=== PATIENT | female | born 1930 | race Hispanic/Latino ===

== ENCOUNTER 2018-05-14 12:52 | Emergency (ER) | payer MEDICARE ==
[~2018-05-14 12:52] MED LIST: ALEN70TA10 PO; AMLO5TAB9 PO; ASPI-1181 PO; ATOR10 PO; CLON0.1T PO; FERS325 PO; LEVO25TA54 PO; LOSA1TAB42 PO; SITA100T12 PO
[2018-05-14 14:48] LABS: BASOPHILS % (AUTO) 0.3 % (0.0-5.0); HEMATOCRIT 45.4 % (36-48); LYMPHOCYTES % (AUTO) 8.9 % (21.0-51.0); MEAN CORPUSCULAR HEMOGLOBIN 29.6 pg (27.0-33.0); MEAN CORPUSCULAR VOLUME 89.5 fL (79-99); MONOCYTES % (AUTO) 3.9 % (3.0-13.0); NEUTROPHILS % (AUTO) 86.9 % (40.0-77.0); NUCLEATED RED BLOOD CELLS 0.1 % (0.0-0.19); PLATELET COUNT (AUTO) 248 K/uL (130-400); RED BLOOD CELL COUNT(AUTO) 5.07 MIL/uL (4.00-5.50); RED CELL DISTRIBUTION WIDTH 14.3 % (11.0-15.5); WHITE BLOOD COUNT (AUTO) 11.4 K/uL (4.8-10.8)
[2018-05-14] MEDS ORDERED: SODIUM CHLORIDE 0.9% 1000ML 1,000 ML IV ONE (15:27)
[2018-05-14] MEDS ORDERED: ONDANSETRON HCL 4 MG/2 ML VIAL ONE (15:27)
[2018-05-14] MEDS ORDERED: MORPHINE SULFATE 4 MG/1ML SYG ONE (15:28)
[2018-05-14 15:35] LABS: ALBUMIN 2.5 g/dL (3.5-5.0); BILIRUBIN,TOTAL 0.5 mg/dL (0.2-1.0); TOTAL PROTEIN, SERUM 7.4 g/dL (6.0-8.3)
[2018-05-14 15:58] LABS: POTASSIUM 2.7 mmol/L (3.5-5.1)
[2018-05-14] MEDS ORDERED: POTASSIUM CHLORIDE 10% ELIXIR 20 MEQ/15 ML UDCUP ONE (17:05)
[2018-05-14] MEDS ORDERED: CLONIDINE HCL 0.1 MG TABLET ONE (17:14)
[2018-05-14 17:31] LABS: APPEARANCE,URINE Clear (CLEAR); BILIRUBIN,URINE Negative (NEGATIVE); COLOR,URINE Yellow (YELLOW); GLUCOSE, URINE (UA) TRACE mg/dL (NEGATIVE); KETONES,URINE Negative (NEGATIVE); LEUKOCYTE ESTERASE ,URINE Trace (NEGATIVE); NITRATE,URINE Negative (NEGATIVE); OCCULT BLOOD,URINE Negative (NEGATIVE); PROTEIN,URINE POS 2+ (NEGATIVE); UROBILINOGEN,URINE 0.2 mg/dL (0.2-1.0)
[2018-05-14 18:05] LABS: BACTERIA,URINE None Seen /HPF (None Seen); RBC,URINE None Seen /HPF (0-1); SQUAMOUS EPITHELIAL CELL,UR Rare /HPF (0-2)
[2018-05-14] MEDS ORDERED: MAGNESIUM OXIDE 400 MG TABLET PO ONE (18:08)
== END 2018-05-14 18:53 | disposition home or self-care (01) ==
LOC: EDH 12:52
DX: G89.29 Other chronic pain (principal); R10.84 Generalized abdominal pain; E11.9 Type 2 diabetes mellitus without complications; E78.5 Hyperlipidemia, unspecified; I10 Essential (primary) hypertension; G43.909 Migraine, unspecified, not intractable, without status migrainosus; M81.0 Age-related osteoporosis without current pathological fracture; M06.9 Rheumatoid arthritis, unspecified; Z90.710 Acquired absence of both cervix and uterus; Z90.49 Acquired absence of other specified parts of digestive tract; Z88.1 Allergy status to other antibiotic agents; Z98.51 Tubal ligation status; Z91.041 Radiographic dye allergy status
CPT/HCPCS: 36415; 74176; 80053; 81001; 82550; 83690; 83735; 84484; 85025; 93005; 96374; 96375; 99284; J2270; J2405; J7030

== ENCOUNTER 2018-05-27 09:57 | Day surgery (SDC) | payer MEDICARE ==
[~2018-05-27] VITALS: Ht 154.9 cm; Wt 42.4 kg
[~2018-05-27 09:57] MED LIST changes: -ASPI-1181 PO; -FERS325 PO; -LOSA1TAB42 PO; +SODIUM CHLORIDE 0.9% 1000ML 1,000 ML IV ONE
[2018-05-27 11:06] VITALS: BP 127/59
[2018-05-27] MEDS ORDERED: ESOM40CA PO (11:27)
[2018-05-27] MEDS ORDERED: LOSA100T58 PO (11:27)
[2018-05-27] MEDS ORDERED: PROPOFOL 10 MG/ML 20ML VIAL IV ONE ×2 (12:15→12:16)
[2018-05-27] MEDS ORDERED: LIDOCAINE HCL-MPF 2% 5ML VIAL ONE (12:16)
[2018-05-27 12:45] VITALS: BP 123/78
[2018-05-27 12:50] VITALS: BP 135/59
[2018-05-27 12:55] VITALS: BP 151/91
--- NOTE | 2018-05-27 13:20 | NUR ---
PT TOLERATED PROCEDURE WELL, INFORMED Levy CHÁVEZ [employer] GUARD NURSE FOR GI DEPARTMENT REGARDING HOME MEDICATIONS ON D/C, STATED PT CAN RESUME HOME MEDICATIONS TO INSTRUCT PT NOT TO TAKE ASPIRIN TODAY OR TOMORROW. POST CARE INSTRUCTION GIVEN TO PT AND SON, BOTH STATED UNDERSTANDING. RECOMMENED PT START WIT SOFT DIET THEN ADVANCE TO SOLIDS LATER ON IN THE EVENING. PT DRIVEN HOME BY SON.
== END 2018-05-27 13:20 | disposition home or self-care (01) ==
LOC: ENDO 09:57 → DAH 09:57 → ENDO 13:20
PROVIDERS: ATTEND Internal Medicine
DX: K29.50 Unspecified chronic gastritis without bleeding (principal); K25.9 Gastric ulcer, unspecified as acute or chronic, without hemorrhage or perforation; K31.89 Other diseases of stomach and duodenum; I10 Essential (primary) hypertension; E78.5 Hyperlipidemia, unspecified; E11.9 Type 2 diabetes mellitus without complications; M81.0 Age-related osteoporosis without current pathological fracture; E03.9 Hypothyroidism, unspecified; Z79.899 Other long term (current) drug therapy; Z88.8 Allergy status to other drugs, medicaments and biological substances
CPT/HCPCS: 43239; 82948; 88305; 93005; A4606; J2704 ×2; J3490; J7030

== ENCOUNTER → 2018-07-12 | Outpatient (CLI) | payer MEDICARE ==
[~2018-07-12] MED LIST changes: +ESOM40CA PO; +LOSA100T58 PO; -SODIUM CHLORIDE 0.9% 1000ML 1,000 ML IV ONE
== END | disposition home or self-care (01) ==
LOC: RAH 14:33
PROVIDERS: ATTEND Family Medicine
DX: G31.9 Degenerative disease of nervous system, unspecified (principal)
CPT/HCPCS: 70551

== ENCOUNTER 2018-11-10 11:28 | Emergency (ER) | payer MEDICARE ==
[2018-11-10 11:54] LABS: BASOPHILS % (AUTO) 0.2 % (0.0-5.0); HEMATOCRIT 33.9 % (36-48); LYMPHOCYTES % (AUTO) 35.1 % (21.0-51.0); MEAN CORPUSCULAR HEMOGLOBIN 29.6 pg (27.0-33.0); MEAN CORPUSCULAR HGB CONC 33.7 g/dL (32.0-36.0); MEAN CORPUSCULAR VOLUME 87.8 fL (79-99); MONOCYTES % (AUTO) 8.4 % (3.0-13.0); NEUTROPHILS % (AUTO) 55.3 % (40.0-77.0); NUCLEATED RED BLOOD CELLS 0.1 % (0.0-0.19); PLATELET COUNT (AUTO) 168 K/uL (130-400); RED BLOOD CELL COUNT(AUTO) 3.86 MIL/uL (4.00-5.50); RED CELL DISTRIBUTION WIDTH 13.8 % (11.0-15.5); WHITE BLOOD COUNT (AUTO) 8.1 K/uL (4.8-10.8)
[2018-11-10 12:12] LABS: POTASSIUM 3.8 mmol/L (3.5-5.1)
[2018-11-10 12:17] LABS: ALBUMIN 2.9 g/dL (3.5-5.0); BILIRUBIN,TOTAL 0.5 mg/dL (0.2-1.0); TOTAL PROTEIN, SERUM 7.2 g/dL (6.0-8.3)
[2018-11-10] MEDS ORDERED: MECLIZINE HCL 25 MG TABLET ONE (12:59)
[2018-11-10] MEDS ORDERED: SODIUM CHLORIDE 0.9% 500ML 500 ML IV ONE (13:00)
[2018-11-10 13:32] LABS: APPEARANCE,URINE Clear (CLEAR); BILIRUBIN,URINE Negative (NEGATIVE); COLOR,URINE Yellow (YELLOW); GLUCOSE, URINE (UA) Negative (NEGATIVE); KETONES,URINE Negative (NEGATIVE); LEUKOCYTE ESTERASE ,URINE Trace (NEGATIVE); NITRATE,URINE Negative (NEGATIVE); OCCULT BLOOD,URINE Negative (NEGATIVE); PROTEIN,URINE POS 2+ mg/dL (NEGATIVE)
[2018-11-10 14:05] LABS: BACTERIA,URINE Rare /HPF (None Seen); HYALINE CASTS, URINE 0-1 /LPF (0-1 /LPF); MUCUS,URINE Few LPF (None Seen); RBC,URINE 0-1 /HPF (0-1); SQUAMOUS EPITHELIAL CELL,UR Few /HPF (0-2)
== END 2018-11-10 15:09 | disposition home or self-care (01) ==
LOC: EDH 11:28
DX: H81.399 Other peripheral vertigo, unspecified ear (principal); E86.0 Dehydration; N39.0 Urinary tract infection, site not specified
CPT/HCPCS: 36415; 70450; 80053; 81001; 82550; 84484; 85025; 93005; 99285; J7040

== ENCOUNTER 2019-10-27 20:23 | Inpatient (IN) | payer MEDICARE ==
[~2019-10-27] VITALS: Ht 152.4 cm; Wt 43.4 kg
[~2019-10-27 20:23] MED LIST changes: +ALBU18HF7 IH; +ASPI-1443 PO; -ATOR10 PO; -CLON0.1T PO; +DICY10SY2 PO; +EMPA1TAB15 PO; +ESCI10TA54 PO; -ESOM40CA PO; +FURO20TA4 PO; +LEVO500T89 PO; +LINA145C PO; +MEGE40L PO; +METO200T49 PO; +SUCR1TAB2 PO
[2019-10-27 20:52] LABS: BASOPHILS % (AUTO) 0.4 % (0.0-5.0); HEMATOCRIT 41.2 % (36-48); LYMPHOCYTES % (AUTO) 6.9 % (21.0-51.0); MEAN CORPUSCULAR HEMOGLOBIN 27.8 pg (27.0-33.0); MEAN CORPUSCULAR HGB CONC 33.3 g/dL (32.0-36.0); MEAN CORPUSCULAR VOLUME 83.6 fL (79-99); MONOCYTES % (AUTO) 2.9 % (3.0-13.0); NEUTROPHILS % (AUTO) 89.3 % (40.0-77.0); PLATELET COUNT (AUTO) 268 K/uL (130-400); RED BLOOD CELL COUNT(AUTO) 4.93 MIL/uL (4.00-5.50); RED CELL DISTRIBUTION WIDTH 18.9 % (11.0-15.5); WHITE BLOOD COUNT (AUTO) 16.6 K/uL (4.8-10.8)
[2019-10-27] MEDS ORDERED: ONDANSETRON HCL 4 MG/2 ML VIAL ONE (20:56)
[2019-10-27] MEDS ORDERED: FAMOTIDINE/PF 20 MG/2 ML VIAL IV ONE (20:56)
[2019-10-27 21:05] LABS: INR 0.92 (0.85-1.15); PARTIAL THROMBOPLASTIN TIME 24.5 SEC (26.3-35.5)
[2019-10-27 21:19] LABS: CREATININE 1.1 mg/dL (0.5-1.5); POTASSIUM 3.3 mmol/L (3.5-5.1)
[2019-10-27 21:24] LABS: BILIRUBIN,TOTAL 0.4 mg/dL (0.2-1.0); TOTAL PROTEIN, SERUM 8.8 g/dL (6.0-8.3)
[2019-10-27 21:32] LABS: B-TYPE NATRIURETIC PEPTIDE 207 pg/mL (0-100)
[2019-10-27] MEDS ORDERED: CEFEPIME HCL 2 GM VIAL ONE (22:06)
[2019-10-27] MEDS ORDERED: MORPHINE SULFATE 2 MG/ML 1ML SYG ONE (22:06)
[2019-10-27 22:41] LABS: APPEARANCE,URINE Clear (CLEAR); BILIRUBIN,URINE Negative (NEGATIVE); COLOR,URINE Yellow (YELLOW); GLUCOSE, URINE (UA) >=1000 mg/dL (NEGATIVE); KETONES,URINE Trace mg/dL (NEGATIVE); LEUKOCYTE ESTERASE ,URINE Negative (NEGATIVE); NITRATE,URINE Negative (NEGATIVE); OCCULT BLOOD,URINE Negative (NEGATIVE); PROTEIN,URINE 300 mg/dL (NEGATIVE); UROBILINOGEN,URINE 0.2 mg/dL (0.2-1.0)
[2019-10-27 22:57] LABS: BACTERIA,URINE Few /HPF (None Seen); MUCUS,URINE Many LPF (None Seen); RBC,URINE 0-1 /HPF (0-1); RENAL EPITHELIAL CELLS,URINE Few /HPF (None Seen); SQUAMOUS EPITHELIAL CELL,UR Moderate /HPF (0-2); WBC,URINE 0-1 /HPF (0-1)
[2019-10-27] MEDS ORDERED: HYDRALAZINE HCL 20 MG/ML VIAL ONE (23:15)
[2019-10-28] VITALS (14 sets, daily range): BP systolic 163–191; BP diastolic 41–71
[2019-10-28] MEDS ORDERED: ONDANSETRON HCL 4 MG/2 ML VIAL ONE ×2 (00:01→09:50)
[2019-10-28] MEDS ORDERED: MORPHINE SULFATE 2 MG/ML 1ML SYG ONE ×2 (00:01→09:50)
[2019-10-28] MEDS: MEROPENEM 1 GM VIAL IVP SCH ×2 (03:00→17:42)
[2019-10-28] MEDS ORDERED: ACETAMINOPHEN 120 MG SUPPOSITORY RC PRN (03:00)
[2019-10-28] MEDS ORDERED: ONDANSETRON HCL 4 MG/2 ML VIAL IVP PRN (03:00)
[2019-10-28 05:04] LABS: BASOPHILS % (AUTO) 0.2 % (0.0-5.0); HEMATOCRIT 39.9 % (36-48); LYMPHOCYTES % (AUTO) 4.9 % (21.0-51.0); MEAN CORPUSCULAR HEMOGLOBIN 27.4 pg (27.0-33.0); MEAN CORPUSCULAR HGB CONC 32.3 g/dL (32.0-36.0); MEAN CORPUSCULAR VOLUME 84.7 fL (79-99); MONOCYTES % (AUTO) 4.9 % (3.0-13.0); NEUTROPHILS % (AUTO) 89.5 % (40.0-77.0); PLATELET COUNT (AUTO) 240 K/uL (130-400); RED BLOOD CELL COUNT(AUTO) 4.71 MIL/uL (4.00-5.50); RED CELL DISTRIBUTION WIDTH 19.2 % (11.0-15.5); WHITE BLOOD COUNT (AUTO) 17.1 K/uL (4.8-10.8)
[2019-10-28 05:15] LABS: INR 0.95 (0.85-1.15); PARTIAL THROMBOPLASTIN TIME 25.1 SEC (26.3-35.5); PROTHROMBIN TIME 10.3 SEC (9.6-11.6)
[2019-10-28] MEDS ORDERED: FLUCONAZOLE 200 MG/NS 100 ML 100 ML ONE (05:18)
[2019-10-28 05:21] LABS: CREATININE 1.1 mg/dL (0.5-1.5); POTASSIUM 3.8 mmol/L (3.5-5.1)
[2019-10-28 05:30] LABS: ALBUMIN 3.4 g/dL (3.5-5.0); BILIRUBIN,TOTAL 0.3 mg/dL (0.2-1.0); MAGNESIUM 3.3 mg/dL (1.80-2.40); TOTAL PROTEIN, SERUM 7.9 g/dL (6.0-8.3)
--- NOTE | 2019-10-28 10:43 | NUR ---
ARRIVAL TO UNIT PATIENT ARRIVED TO UNIT AOX4. PATIENT JUST RECEIVED MORPHINE PRIOR TO COMING AND REPORTS NO PAIN IN ABDOMEN. PATIENT HAS BP OF 173/55 HR 88 O2 99% RA RR 17 AND TEMP 97.5 ORALLY. PATIENT WAS ABLE TO AMBULATE TO THE BED WITH ASSISTANCE. PATIENT APPEARS TO NOT BE IN ANY DISTRESS CURRENTLY AND IS LAYING IN BED. DAUGHTER BIANCA HAS BEEN INFORMED OF PATIENT GOING FOR SURGERY SOMETIME TODAY IN ER AND HAS BEEN ASKED TO BE REACHED AT [phone] FOR ANY CHANGES WITH HER MOM. WILL CONTINUE TO MONITOR PATIENT.
--- NOTE | 2019-10-28 15:16 | NUR ---
SURGERY? WHEN RECEIVING REPORT FROM ER NURSE IN THE AM, IT WAS BROUGHT THAT THE PATIENT SHOULD BE UNDERGOING SURGERY TODAY. FAMILY CALLED TO SEE IF PATIENT HAS ALREADY WENT FOR SURGERY AND THEY WERE TOLD THAT THE PATIENT HAS NOT WENT FOR SURGERY YET AND THEY SAID OKAY AND TO KEEP THEM UPDATED. THIS NURSE CALLED ER NURSE RAVI TO SEE IF SHE WAS EVER TOLD WHEN THE PATIENT WAS GOING FOR HER SURGERY AND RAVI SAID THAT SHE WAS INFORMED BY THE ER NURSE FROM THE PREVIOUS DAY THAT DR. ROBBINS AND HIS PA WENT TO SEE THE PATIENT AND TOLD THE PREVIOUS NURSE THAT THEY WERE GOING TO DO SURGERY ON THE PATIENT TOMORROW ( IN TODAY). THIS NURSE CALLED DR. ROBBINS TO INQUIRE TO SEE WHEN THE PATIENT WOULD GO FOR SURGERY AND HE SAID NEVER TOLD ANYONE INCLUDING THE FAMILY OR STAFF THAT HE WAS TAKING THE PATIENT FOR SURGERY TODAY. HE ALSO STATED THAT HE TALKED TO HIS PA AND ALL THAT THE PA TOLD HIM WAS THAT THE PATIENT IS AN 89 YEAR OLD FEMALE WHO CAME IN FOR AN ISCHEMIC BOWEL, BUT HAS BEEN STABLE SINCE AND JUST HAS COMPLAINTS OF RIGHT UPPER QUADRANT PAIN. DR. ROBBINS SAID THAT HE DID NOT PLAN ON DOING SURGERY ON THIS PATIENT, BUT WILL COME TO SEE THE PATIENT. DR. ACOSTA NOTIFIED. Addendum: 10/28/19 at 1806 by Meron Kincaid RN RN DR. ROBBINS CAME TO SEE THE PATIENT AND SAID THAT HE WILL NOT BE PERFORMING SURGERY ON THE PATIENT AND THE PATIENT IS HIGH RISK. INFOMRED DR. ACOSTA AND HE ORDERED TO PLACE THE PATIENT ON A CLEAR LIQUID DIET AND WE WILL GO FROM THERE. FAMILY WAS CALLED AND THIS NURSE SPOKE WITH HER DAUGHTER BIANCA AND GAVE HER THE UPDATE AND SHE SAID OKAY. PATIENT IS STABLE AND WILL CONTINUE TO MONITOR.
--- NOTE | 2019-10-28 16:49 | NUR ---
cm note unable to reach pt, call made to daughter Tammy [phone]. and states pt resides at home with donovan Maguire, states pt ambulates with cane and walker at times. has provider 4-5hrs daily. dc plna is back to home at time of dc. states no dc needs at present. Addendum: 10/28/19 at 1655 by ROBERTA CARR Amended: Links added.
[2019-10-28] MEDS: HYDRALAZINE HCL 20 MG/ML VIAL IV PRN ×3 (18:12→22:11)
[2019-10-29] VITALS (15 sets, daily range): BP systolic 160–187; BP diastolic 47–77
--- NOTE | 2019-10-29 01:34 | NUR ---
Called Dr. Mario at [phone] regarding pt's HR. HR is trending 110s to 130s. Medication reconciliation lists metoprolol 200 MG XL as home medication. MD states may restart pt's home metoprolol
[2019-10-29] MEDS ORDERED: METOPROLOL SUCCINATE 50 MG TAB.SR.24H PO ONE ×2 (01:38→20:46)
[2019-10-29] MEDS ORDERED: METOPROLOL SUCCINATE 50 MG TAB.SR.24H PO SCH (01:45)
[2019-10-29] MEDS: MEROPENEM 1 GM VIAL IVP SCH ×2 (02:50→14:56)
[2019-10-29] MEDS: FLUCONAZOLE 200 MG/NS 100 ML 100 ML IV SCH ×2 (02:50→03:02)
[2019-10-29 03:37] LABS: BASOPHILS % (AUTO) 0.2 % (0.0-5.0); HEMATOCRIT 37.6 % (36-48); LYMPHOCYTES % (AUTO) 4.9 % (21.0-51.0); MEAN CORPUSCULAR HEMOGLOBIN 27.3 pg (27.0-33.0); MEAN CORPUSCULAR HGB CONC 31.9 g/dL (32.0-36.0); MEAN CORPUSCULAR VOLUME 85.5 fL (79-99); MONOCYTES % (AUTO) 7.8 % (3.0-13.0); NEUTROPHILS % (AUTO) 86.1 % (40.0-77.0); PLATELET COUNT (AUTO) 220 K/uL (130-400); RED CELL DISTRIBUTION WIDTH 19.7 % (11.0-15.5)
[2019-10-29 03:53] LABS: ALBUMIN 2.8 g/dL (3.5-5.0); BILIRUBIN,TOTAL 0.4 mg/dL (0.2-1.0); MAGNESIUM 3.3 mg/dL (1.80-2.40); POTASSIUM 3.5 mmol/L (3.5-5.1); TOTAL PROTEIN, SERUM 7.2 g/dL (6.0-8.3)
[2019-10-29] MEDS: HYDRALAZINE HCL 20 MG/ML VIAL IV PRN (10:39)
[2019-10-29] MEDS: MORPHINE SULFATE 2 MG/ML 1ML SYG IVP PRN ×2 (10:40→12:49)
--- NOTE | 2019-10-29 12:51 | NUR ---
HANDOFF REPORT HANDOFF REPORT GIVEN TO MED SURG NURSE RYAN AND WAS ALSO INFORMED OF PATIENT'S FAMILY NUMBER AND THAT DR. ACOSTA WANTS THE PATIENT ON TELE ON ARRIVAL TO UNIT AND SHE VERBALIZED UNDERSTANDING. PATIENT IS ORIENTED AND WILL BE LEAVING WITH ALL BELONGINGS. PATIENT ALSO RECEIVED DOSE OF MORPHINE BEFORE TRANSFER.
--- NOTE | 2019-10-29 12:53 | NUR ---
MORPHINE 2MG Q2H DR. LEWIS'S PA, DIANN DONNELLY SAID THAT IT IS OKAY FOR THE PATIENT TO RECEIVE MORPHINE 2MG Q2H NEEDED FOR PAIN.
--- NOTE | 2019-10-29 13:30 | NUR ---
Consult Dr Jaeger called per Dr Mario for second opinion on this patient.
--- NOTE | 2019-10-29 14:26 | NUR ---
Spoke with Dr. Perdue regarding Dr. Mario's concern about elevated WBC's and consult w/ Dr. Jaeger for second opinion. Dr. Perdue stated no plans for surgery at this point as pt is high risk for complications, and no indication to do. Said Dr. Jaeger may see pt if she wishes. Dr. Perdue also questioned why GI consult had not been done, however no orders for this were seen in the chart. Last dictation done by him read recommendations for GI and Cardiology consult were given to ICU sap consultant team. Notified Goyo Prakash NP for [facility], of Dr. Perdue's response.
--- NOTE | 2019-10-29 14:38 | NUR ---
Spoke with Dr. Jaeger to update her with Dr. Perdue's response. She stated she will agree to see pt only after cardiac consult and gi consult were completed and only after Dr. Perdue sees pt in person (not TRANSPORTATION ATTENDANT). Notified Dr. Mario.
[2019-10-29] MEDS ORDERED: GLUCAGON 1MG KIT 1 MG ML IM PRN (18:15)
[2019-10-29] MEDS ORDERED: DEXTROSE 50%-WATER 50 ML DISP.SYRIN IV PRN (18:15)
[2019-10-29] MEDS: INSULIN HUMULIN R 100 UNIT/ML 3ML SQ SCH (20:49)
[2019-10-29] MEDS: SODIUM CHLORIDE 0.9% 1000ML 1,000 ML IV SCH (20:50)
[2019-10-29] MEDS: METOPROLOL SUCCINATE 50 MG TAB.SR.24H PO SCH (20:50)
[2019-10-30 00:32] VITALS: BP 173/74
[2019-10-30] MEDS: FLUCONAZOLE 200 MG/NS 100 ML 100 ML IV SCH (03:45)
[2019-10-30] MEDS: MEROPENEM 1 GM VIAL IVP SCH ×2 (03:45→17:18)
[2019-10-30 04:18] VITALS: BP 178/65
[2019-10-30 05:18] LABS: BASOPHILS % (AUTO) 0.2 % (0.0-5.0); EOSINOPHILS % (AUTO) 0.2 % (0.0-8.0); HEMATOCRIT 38.5 % (36-48); MEAN CORPUSCULAR HEMOGLOBIN 27.7 pg (27.0-33.0); MEAN CORPUSCULAR HGB CONC 32.5 g/dL (32.0-36.0); MEAN CORPUSCULAR VOLUME 85.4 fL (79-99); MONOCYTES % (AUTO) 7.2 % (3.0-13.0); NEUTROPHILS % (AUTO) 83.2 % (40.0-77.0); PLATELET COUNT (AUTO) 192 K/uL (130-400); RED BLOOD CELL COUNT(AUTO) 4.51 MIL/uL (4.00-5.50); RED CELL DISTRIBUTION WIDTH 19.9 % (11.0-15.5); WHITE BLOOD COUNT (AUTO) 18.4 K/uL (4.8-10.8)
[2019-10-30 05:42] LABS: ALBUMIN 2.4 g/dL (3.5-5.0); BILIRUBIN,DIRECT 0.1 mg/dL (0.0-0.3); BILIRUBIN,TOTAL 0.4 mg/dL (0.2-1.0); CREATININE 0.7 mg/dL (0.5-1.5); POTASSIUM 3.6 mmol/L (3.5-5.1); TOTAL PROTEIN, SERUM 6.6 g/dL (6.0-8.3)
[2019-10-30] MEDS: INSULIN HUMULIN R 100 UNIT/ML 3ML SQ SCH ×4 (06:39→20:44)
--- NOTE | 2019-10-30 07:10 | NUR ---
Nursing Note Spoke with Jael BRITO, Informed her we need to follow up on the GI consult and that the doctors need to call the daughter to speak with her
[2019-10-30 08:00] VITALS: BP 183/74
[2019-10-30] MEDS: HYDRALAZINE HCL 20 MG/ML VIAL IV PRN ×2 (08:45→17:18)
--- NOTE | 2019-10-30 11:30 | NUR ---
Dr. Mario and Chris Chicas, Horse Stud Manager for Dr. Perdue, here for consult with pt. They spoke about treatment plan for pt. Per surgical WAREHOUSE MAN, pt is currently tolerating clear liquids and requiring minimal pain control. Plan as outlined by Dr. Perdue is to continue conservative management at present. Informed both Dr. Mario and Dr. Perdue that pt family is asking for update from physician. WAREHOUSE MAN stated Dr. Perdue will call.
[2019-10-30] MEDS ORDERED: METHYLPREDNISOLONE SOD SUCC 40MG/ML 1ML IVP SCH (11:43)
[2019-10-30] MEDS ORDERED: DiphenhydrAMINE HCL 50 MG/ML VIAL IV SCH (11:45)
--- NOTE | 2019-10-30 11:49 | NUR ---
Orders rec'd from Dr. Mario for CT ANGIO ABD to evaluate ischemic bowel. Reported to MD pt is allergic to iodine. Rec'd orders for solumedrol 40 mg iv and benadryl 25 mg iv x 1 before scan.
[2019-10-30] MEDS ORDERED: IOHEXOL 350 MG/ML 100ML INFUS..BTL IV ONE (12:04)
[2019-10-30 12:08] VITALS: BP 181/55
[2019-10-30 16:00] VITALS: BP 206/74
[2019-10-30] MEDS: SODIUM CHLORIDE 0.9% 1000ML 1,000 ML IV SCH (17:16)
[2019-10-30 20:26] VITALS: BP 189/64
[2019-10-30] MEDS: METOPROLOL SUCCINATE 50 MG TAB.SR.24H PO SCH (20:43)
--- NOTE | 2019-10-30 20:45 | NUR ---
MEDS SHIFT ASSESSMENT DONE, PLEASE REFER TO CHART. DUE MEDS ADMINISTERED, TOLERATED WELL. CALL LIGHT WITHIN REACH. WILL MONITOR PT. Addendum: 10/30/19 at 2229 by GHANSHYAM LINARES RN RN Amended: Links added.
[2019-10-31] VITALS (8 sets, daily range): BP systolic 154–205; BP diastolic 55–80
--- NOTE | 2019-10-31 01:30 | NUR ---
ROUNDS PT RESTING WELL, FAIRLY ASLEEP. NO DISTRESS NOTED. KEPT UNDISTURBED FOR NOW. WILL CONTINUE TO MONITOR.
[2019-10-31] MEDS: MEROPENEM 1 GM VIAL IVP SCH ×2 (02:18→14:19)
[2019-10-31] MEDS: FLUCONAZOLE 200 MG/NS 100 ML 100 ML IV SCH (02:18)
[2019-10-31] MEDS: HYDRALAZINE HCL 20 MG/ML VIAL IV PRN (03:29)
[2019-10-31 04:29] LABS: BASOPHILS % (AUTO) 0.1 % (0.0-5.0); EOSINOPHILS % (AUTO) 0.1 % (0.0-8.0); HEMATOCRIT 37.5 % (36-48); LYMPHOCYTES % (AUTO) 9.3 % (21.0-51.0); MEAN CORPUSCULAR HEMOGLOBIN 27.7 pg (27.0-33.0); MEAN CORPUSCULAR HGB CONC 33.1 g/dL (32.0-36.0); MEAN CORPUSCULAR VOLUME 83.9 fL (79-99); NEUTROPHILS % (AUTO) 86.4 % (40.0-77.0); PLATELET COUNT (AUTO) 210 K/uL (130-400); RED BLOOD CELL COUNT(AUTO) 4.47 MIL/uL (4.00-5.50); RED CELL DISTRIBUTION WIDTH 19.1 % (11.0-15.5); WHITE BLOOD COUNT (AUTO) 11.6 K/uL (4.8-10.8)
--- NOTE | 2019-10-31 05:12 | NUR ---
ROUNDS PT RESTING WELL, NO CONCERNS VERBALIZED. NO DISTRESS NOTED. FOR MORE CARE.
[2019-10-31 05:15] LABS: CREATININE 0.7 mg/dL (0.5-1.5); POTASSIUM 3.3 mmol/L (3.5-5.1)
[2019-10-31] MEDS: LEVOTHYROXINE 25 MCG TABLET PO SCH (05:45)
[2019-10-31] MEDS: INSULIN HUMULIN R 100 UNIT/ML 3ML SQ SCH ×4 (05:45→20:48)
--- NOTE | 2019-10-31 06:18 | NUR ---
MD DR VILLALOBOS CALLED AND INFORMED OF LOW POTASSIUM LEVEL. NEW MED ORDER GIVEN, PLEASE REFER TO CPOE. WILL MEDICATE PT. INFORMED OF PERSISTENTLY HIGH BP BUT ASYMPTOMATIC. NO ADDITIONAL ORDERS GIVEN.
[2019-10-31] MEDS ORDERED: POTASSIUM CHLORIDE 20MEQ/100ML 100 ML IV PRN (06:30)
[2019-10-31] MEDS ORDERED: POTASSIUM CHLORIDE 10% ELIXIR 20 MEQ/15 ML UDCUP PO PRN (06:30)
[2019-10-31] MEDS ORDERED: LIDOCAINE HCL-MPF 1% 2ML VIAL IV PRN (06:30)
[2019-10-31] MEDS: AMLODIPINE BESYLATE 5 MG TAB PO SCH (08:19)
[2019-10-31] MEDS: LOSARTAN 100 MG TABLET PO SCH (08:19)
[2019-10-31] MEDS: METOPROLOL SUCCINATE 50 MG TAB.SR.24H PO SCH ×2 (08:19→20:41)
[2019-10-31] MEDS: LISINOPRIL 20 MG TABLET PO SCH (09:15)
[2019-10-31] MEDS: SODIUM CHLORIDE 0.9% 1000ML 1,000 ML IV SCH (11:48)
[2019-10-31] MEDS: POTASSIUM CHLORIDE 20 MEQ ERTAB PO PRN ×3 (11:51→22:35)
--- NOTE | 2019-10-31 20:48 | NUR ---
MEDS SHIFT ASSESSMENT DONE, PLEASE REFER TO CHART. DUE MEDS ADMINISTERED, TOLERATED WELL. CALL LIGHT WITHIN REACH. WILL MONITOR PT. Addendum: 10/31/19 at 2134 by GHANSHYAM LINARES RN RN Amended: Links added.
[2019-11-01] VITALS (7 sets, daily range): BP systolic 108–206; BP diastolic 60–80
[2019-11-01] MEDS: MEROPENEM 1 GM VIAL IVP SCH ×2 (02:01→16:12)
[2019-11-01] MEDS: FLUCONAZOLE 200 MG/NS 100 ML 100 ML IV SCH (02:01)
--- NOTE | 2019-11-01 02:01 | NUR ---
MEDS PT FAIRLY ASLEEP. NO DISTRESS NOTED. KEPT UNDISTURBED FOR NOW. DUE MEDS ADMINISTERED, TOLERATED WELL. CALL LIGHT WITHIN REACH. WILL CONTINUE TO MONITOR.
[2019-11-01] MEDS: HYDRALAZINE HCL 20 MG/ML VIAL IV PRN (03:06)
--- NOTE | 2019-11-01 03:06 | NUR ---
BP PT HAS ELEVATED BP BUT IS ASYMPTOMATIC. MEDICATED WITH HYDRALAZINE IV. KEPT COMFORTABLE. WILL RE-ASSESS PT.
[2019-11-01] MEDS: LEVOTHYROXINE 25 MCG TABLET PO SCH (05:16)
--- NOTE | 2019-11-01 05:20 | NUR ---
MEDS PCP AWAKENED PT FOR BLOOD SUGAR CHECK. DUE MEDS ADMINISTERED, TOLERATED WELL. KEPT COMFORTABLE. FOR MORE CARE.
[2019-11-01] MEDS: INSULIN HUMULIN R 100 UNIT/ML 3ML SQ SCH ×4 (05:34→20:27)
[2019-11-01] MEDS: SODIUM CHLORIDE 0.9% 1000ML 1,000 ML IV SCH (05:58)
[2019-11-01] MEDS: LOSARTAN 100 MG TABLET PO SCH (10:40)
[2019-11-01] MEDS: AMLODIPINE BESYLATE 5 MG TAB PO SCH (10:41)
[2019-11-01] MEDS: LISINOPRIL 20 MG TABLET PO SCH (10:41)
[2019-11-01] MEDS: METOPROLOL SUCCINATE 50 MG TAB.SR.24H PO SCH ×2 (10:41→20:27)
--- NOTE | 2019-11-01 20:30 | NUR ---
MEDS SHIFT ASSESSMENT DONE, PLEASE REFER TO CHART. DUE MEDS ADMINISTERED, TOLERATED WELL. CALL LIGHT WITHIN REACH. WILL MONITOR PT. Addendum: 11/01/19 at 2117 by GHANSHYAM LINARES RN RN Amended: Links added.
[2019-11-02] VITALS: BP 147/52
--- NOTE | 2019-11-02 02:00 | NUR ---
ROUNDS PT RESTING WELL, FAIRLY ASLEEP. NO DISTRESS NOTED. KEPT UNDISTURBED FOR NOW. WILL CONTINUE TO MONITOR.
[2019-11-02] MEDS: FLUCONAZOLE 200 MG/NS 100 ML 100 ML IV SCH (02:30)
[2019-11-02] MEDS: MEROPENEM 1 GM VIAL IVP SCH ×2 (02:30→15:28)
[2019-11-02] MEDS: SODIUM CHLORIDE 0.9% 1000ML 1,000 ML IV SCH (02:31)
[2019-11-02 04:00] VITALS: BP 116/58
[2019-11-02 04:25] LABS: HEMATOCRIT 40.3 % (36-48); MEAN CORPUSCULAR HEMOGLOBIN 27.5 pg (27.0-33.0); MEAN CORPUSCULAR HGB CONC 32.5 g/dL (32.0-36.0); MEAN CORPUSCULAR VOLUME 84.5 fL (79-99); RED BLOOD CELL COUNT(AUTO) 4.77 MIL/uL (4.00-5.50); RED CELL DISTRIBUTION WIDTH 19.7 % (11.0-15.5); WHITE BLOOD COUNT (AUTO) 7.2 K/uL (4.8-10.8)
[2019-11-02 05:04] LABS: ALBUMIN 2.4 g/dL (3.5-5.0); BILIRUBIN,TOTAL 0.3 mg/dL (0.2-1.0); CREATININE 0.7 mg/dL (0.5-1.5); MAGNESIUM 2.4 mg/dL (1.80-2.40); TOTAL PROTEIN, SERUM 6.1 g/dL (6.0-8.3)
[2019-11-02] MEDS: LEVOTHYROXINE 25 MCG TABLET PO SCH (06:07)
[2019-11-02] MEDS: INSULIN HUMULIN R 100 UNIT/ML 3ML SQ SCH ×4 (06:07→20:46)
[2019-11-02 08:00] VITALS: BP 174/62
--- NOTE | 2019-11-02 09:21 | NUR ---
VIVIAN ERVIN ROUNDED AND SAW PT STATED NO SX INTERVENTION AT THIS POINT. ORDERS TO ADVANCE DIET TO FULL LIQUID. WILL CONTINUE TO MONITOR PT.
[2019-11-02] MEDS: AMLODIPINE BESYLATE 5 MG TAB PO SCH (09:36)
[2019-11-02] MEDS: METOPROLOL SUCCINATE 50 MG TAB.SR.24H PO SCH ×2 (09:36→19:48)
[2019-11-02] MEDS: LOSARTAN 100 MG TABLET PO SCH (09:37)
[2019-11-02] MEDS: LISINOPRIL 20 MG TABLET PO SCH (09:37)
[2019-11-02 12:00] VITALS: BP 162/62
[2019-11-02 16:00] VITALS: BP 183/63
[2019-11-02 20:04] VITALS: BP 161/53
[2019-11-02] MEDS: HYDRALAZINE HCL 20 MG/ML VIAL IV PRN (23:45)
[2019-11-03] VITALS (8 sets, daily range): BP systolic 163–191; BP diastolic 55–90
[2019-11-03] MEDS: MEROPENEM 1 GM VIAL IVP SCH ×2 (01:21→15:40)
[2019-11-03] MEDS: FLUCONAZOLE 200 MG/NS 100 ML 100 ML IV SCH (01:21)
[2019-11-03] MEDS: SODIUM CHLORIDE 0.9% 1000ML 1,000 ML IV SCH ×2 (01:23→21:49)
[2019-11-03] MEDS: LOSARTAN 100 MG TABLET PO SCH (04:05)
[2019-11-03] MEDS: AMLODIPINE BESYLATE 5 MG TAB PO SCH (04:06)
[2019-11-03] MEDS: LISINOPRIL 20 MG TABLET PO SCH (04:06)
[2019-11-03 04:33] LABS: BASOPHILS % (AUTO) 0.3 % (0.0-5.0); EOSINOPHILS % (AUTO) 0.1 % (0.0-8.0); HEMATOCRIT 45.3 % (36-48); LYMPHOCYTES % (AUTO) 21.2 % (21.0-51.0); MEAN CORPUSCULAR HEMOGLOBIN 27.6 pg (27.0-33.0); MEAN CORPUSCULAR HGB CONC 32.5 g/dL (32.0-36.0); MEAN CORPUSCULAR VOLUME 85.2 fL (79-99); MONOCYTES % (AUTO) 10.2 % (3.0-13.0); NEUTROPHILS % (AUTO) 67.1 % (40.0-77.0); PLATELET COUNT (AUTO) 211 K/uL (130-400); RED BLOOD CELL COUNT(AUTO) 5.32 MIL/uL (4.00-5.50); RED CELL DISTRIBUTION WIDTH 19.9 % (11.0-15.5); WHITE BLOOD COUNT (AUTO) 9.7 K/uL (4.8-10.8)
[2019-11-03 04:43] LABS: CREATININE 0.5 mg/dL (0.5-1.5); POTASSIUM 3.9 mmol/L (3.5-5.1)
[2019-11-03] MEDS: LEVOTHYROXINE 25 MCG TABLET PO SCH (04:57)
[2019-11-03] MEDS: HYDRALAZINE HCL 20 MG/ML VIAL IV PRN (05:30)
[2019-11-03] MEDS: INSULIN HUMULIN R 100 UNIT/ML 3ML SQ SCH ×4 (05:53→20:33)
[2019-11-03] MEDS: METOPROLOL SUCCINATE 50 MG TAB.SR.24H PO SCH ×2 (09:42→20:55)
[2019-11-03] MEDS ORDERED: CLONIDINE HCL 0.2 MG TABLET PO SCH (21:35)
[2019-11-03] MEDS ORDERED: CLONIDINE HCL 0.1 MG TABLET PO PRN (21:45)
[2019-11-04 00:16] VITALS: BP 133/57
[2019-11-04] MEDS: FLUCONAZOLE 200 MG/NS 100 ML 100 ML IV SCH (03:07)
[2019-11-04] MEDS: MEROPENEM 1 GM VIAL IVP SCH (03:07)
[2019-11-04 04:16] VITALS: BP 155/56
[2019-11-04] MEDS: INSULIN HUMULIN R 100 UNIT/ML 3ML SQ SCH ×2 (05:55→12:39)
[2019-11-04] MEDS: LEVOTHYROXINE 25 MCG TABLET PO SCH (05:56)
[2019-11-04 08:27] VITALS: BP 148/61
[2019-11-04] MEDS: AMLODIPINE BESYLATE 5 MG TAB PO SCH (09:12)
[2019-11-04] MEDS: LOSARTAN 100 MG TABLET PO SCH (09:12)
[2019-11-04] MEDS: METOPROLOL SUCCINATE 50 MG TAB.SR.24H PO SCH (09:12)
[2019-11-04] MEDS: LISINOPRIL 20 MG TABLET PO SCH (09:12)
--- NOTE | 2019-11-04 10:01 | NUR ---
BASED ON THE ADVICE OF THE DIRECTOR AND THE NURSING DIRECTOR VALIDATION WHO ALSO HAD TAKEN CARE OF THIS PATIENT, IT WAS DETERMINED TO GIVE THE HTN MEDS WITH THE CURRENT V/S OF 148/61, H/R 61, PT IS A/O X3.
[2019-11-04 12:00] VITALS: BP 127/33
--- NOTE | 2019-11-04 13:25 | NUR ---
RDSCREEN - LOS X 8 Pt admitted with Ischemic bowel. Abdominal pain resolved, as per EMR. Diet advanced to GI Soft/[place]. No report of GI distress, Excellent PO intake at 100%. Underweight for age status (BMI 18.7). Monitored labs: BG 248, Alb 2.4. LBM 11/02/19. Recommend 60gm CC diet modification Recommend 60mL ProMod QD RD to continue to monitor. Please notify as additional nutrition concerns arise. Thank you.
--- NOTE | 2019-11-04 15:32 | NUR ---
pt prepared for discharge home, dismissed by w/c in good condition accompanied by family. IV d/c w/o complication
== END 2019-11-04 15:40 | disposition home or self-care (01) | DRG 393 ==
LOC: EDH 20:23 → EDHIP 22:22 → DAHIP 10-28 19:53 → 3DH 10-29 13:17
PROVIDERS: ADMIT Internal Medicine Infectious Disease; ATTEND Internal Medicine Infectious Disease
DX: K55.052 Diffuse acute (reversible) ischemia of intestine, part unspecified (principal); K65.9 Peritonitis, unspecified; I10 Essential (primary) hypertension; E11.51 Type 2 diabetes mellitus with diabetic peripheral angiopathy without gangrene; K63.89 Other specified diseases of intestine; E78.5 Hyperlipidemia, unspecified; M19.90 Unspecified osteoarthritis, unspecified site; R53.81 Other malaise; Z91.041 Radiographic dye allergy status; Z88.0 Allergy status to penicillin; Z88.8 Allergy status to other drugs, medicaments and biological substances; Z90.710 Acquired absence of both cervix and uterus; Z90.49 Acquired absence of other specified parts of digestive tract; Z83.3 Family history of diabetes mellitus
CPT/HCPCS: 36415; 71045; 74174; 74176; 80048; 80053; 80076; 81001; 82150; 82270; 82550; 82948; 83605; 83615; 83690; 83735; 83880; 84100; 84132; 84145; 84484; 85025; 85027; 85610; 85730; 87040; 93005; 99291; G0378; J0360; J0692; J1200; J1450; J1815; J2185; J2405; J2920; J3490; J7030; Q9967